=== PATIENT | male | born 1980 | race African-American/Black ===

== ENCOUNTER 2019-07-11 12:26 | Emergency (ER) | payer SELFPAY ==
[~2019-07-11] VITALS: Ht 177.8 cm; Wt 90.7 kg
--- OUTSIDE RECORDS SUMMARY | 2019-07-11 12:30 | XMS REPORT ---
Author Author [facility] Address Unknown Phone Unavailable Care Team Providers Care Manufacturers Service Representative Name Role Phone Unavailable Unavailable Payers Payer Name Policy Type Policy Number Effective Date Expiration Date Problems This patient has no known problems. Allergies, Adverse Reactions, Alerts Allergy Name Allergy Type Status Severity Reaction(s) Onset Date Inactive Date Treating Clinician Comments No Known Allergies DA Active U 2018-09-16 00:00:00 No Known Allergies DA Active U 2018-08-18 00:00:00 No Known Allergies DA Active U 2018-06-11 00:00:00 Medications This patient has no known medications. Results Test Description Test Time Test Comments Text Results Atomic Results Result Comments CREATINE KINASE (CK) 2019-03-09 16:58:00 CREATINE KINASE (CK) (test code=CK) 276 35-232 Result is in INTERNATIONAL UNITS/LITER CREATINE KINASE (CK)2019-03-09 09:04:00* Test Item Value Reference Range Comments CREATINE KINASE (CK) (test code=CK) 303 35-232 Result is in INTERNATIONAL UNITS/LITER COMMENTS: TIMEDCREATINE KINASE (CK)2019-03-09 02:49:00* Test Item Value Reference Range Comments CREATINE KINASE (CK) (test code=CK) 381 35-232 Result is in INTERNATIONAL UNITS/LITER CREATINE KINASE (CK)2019-03-08 21:08:00* Test Item Value Reference Range Comments CREATINE KINASE (CK) (test code=CK) 422 35-232 Result is in INTERNATIONAL UNITS/LITER CREATINE KINASE (CK)2019-03-08 08:54:00* Test Item Value Reference Range Comments CREATINE KINASE (CK) (test code=CK) 584 04-232 Result is in INTERNATIONAL UNITS/LITER CREATINE KINASE (CK)2019-03-07 23:01:00* Test Item Value Reference Range Comments CREATINE KINASE (CK) (test code=CK) 788 35232 Result is in INTERNATIONAL UNITS/LITER DRUGS OF ABUSE SCREEN [id number] 05:33:00* Test Item Value Reference Range Comments URN COCAINE (test code=COCAURN) POSITIVE NEGATIVE URN CANNABINOIDS (test code=CANNABURN) NEGATIVE NEGATIVE URN AMPHETAMINE (test code=AMPHETURN) NEGATIVE NEGATIVE URN BARBITURATE (test code=BARBITURN) NEGATIVE NEGATIVE URN BENZODIAZEPINE (test code=BENZOURN) NEGATIVE NEGATIVE Cut-off value:200 ng/mL URN OPIATES (test code=OPIATURN) NEGATIVE NEGATIVE Cut-off value:2000 ng/mL URN PHENCYCLIDINE (PCP) (test code=PHENCURN) NEGATIVE NEGATIVE Cutoffs:Barbiturates 200 ng/mLBenzodiazepines 200 ng/mLTHC Cannabinoids 50 ng/mLOpiates(Morphine) 2000 ng/mLAmphetamine 1000 ng/mLCocaine 300 ng/mLPCP phencyclidine 25 ng/mL Unconfirmed screening results shouldnot be used for non-medical purposes. DRUGS OF ABUSE SCREEN [id number] 05:25:00* Test Item Value Reference Range Comments URN COCAINE (test code=COCAURN) NEGATIVE URN CANNABINOIDS (test code=CANNABURN) NEGATIVE NEGATIVE URN AMPHETAMINE (test code=AMPHETURN) NEGATIVE NEGATIVE URN BARBITURATE (test code=BARBITURN) NEGATIVE NEGATIVE URN BENZODIAZEPINE (test code=BENZOURN) NEGATIVE NEGATIVE Cut-off value:200 ng/mL URN OPIATES (test code=OPIATURN) NEGATIVE NEGATIVE Cut-off value:2000 ng/mL URN PHENCYCLIDINE (PCP) (test code=PHENCURN) NEGATIVE NEGATIVE Cutoffs:Barbiturates 200 ng/mLBenzodiazepines 200 ng/mLTHC Cannabinoids 50 ng/mLOpiates(Morphine) 2000 ng/mLAmphetamine 1000 ng/mLCocaine 300 ng/mLPCP phencyclidine 25 ng/mL Unconfirmed screening results shouldnot be used for non-medical purposes. URINALYSIS [id number] 05:16:00* Test Item Value Reference Range Comments UA COLOR (test code=COLU) YELLOW YEL/STRAW UA APPEARANCE (test code=APPU) CLEAR CLEAR UA GLUCOSE DIPSTICK (test code=DGLUU) NEGATIVE NEGATIVE UA BILIRUBIN DIPSTICK (test code=BILU) NEGATIVE NEGATIVE UA KETONE DIPSTICK (test code=KETU) NEGATIVE NEGATIVE UA SPECIFIC GRAVITY (test code=SGU) 1.012 1.005-1.030 UA BLOOD DIPSTICK (test code=MARCOS) NEGATIVE NEGATIVE UA PH DIPSTICK (test code=JESENIA) 5.0 5.0-7.0 UA PROTEIN DIPSTICK (test code=PROU) NEGATIVE NEGATIVE UA UROBILINIOGEN DIPSTICK (test code=URO) 2.0 mg/dL 0.2-1.0 UA NITRITE DIPSTICK (test code=DUDLEY) NEGATIVE NEGATIVE UA LEUKOCYTE ESTERASE DIPSTICK (test code=LEUU) NEGATIVE NEGATIVE UA WBC (test code=WBCU) 0-3 WBC/HPF 0-3 UA RBC (test code=RBCU) 0-3 RBC/HPF 0-3 UA BACTERIA (test code=BACU) TRACE /HPF NONE SEEN UA SQUAMOUS CELLS (test code=SQU) 0-5 /HPF NONE SEEN UA MUCUS (test code=MUCU) TRACE /LPF NONE SEEN COMMENTS: Clean CatchCOMPREHENSIVE METABOLIC [id number] 05:13:00* Test Item Value Reference Range Comments SODIUM (test code=NA) 139 mEq/L 134-147 POTASSIUM (test code=K) 4.1 mEq/L 3.4-5.0 CHLORIDE (test code=CL) 106 mEq/L 100-108 CARBON DIOXIDE (test code=CO2) 22 mEq/L 21-33 ANION GAP (test code=GAP) 15 0-20 GLUCOSE (test code=GLU) 86 mg/dL 70-110 BLOOD UREA NITROGEN (test code=BUN) 21 mg/dL 7-18 GLOMERULAR FILTRATION RATE (test code=GFR) 82.0 105-110 Units of measure=ml/min/1.73 m2 CREATININE (test code=CREAT) 1.2 mg/dL 0.6-1.3 TOTAL PROTEIN (test code=PROT) 7.6 g/dL 6.4-8.2 ALBUMIN (test code=ALB) 4.10 g/dL 3.4-5.0 CALCIUM (test code=CA) 8.3 mg/dL 8.0-10.5 BILIRUBIN TOTAL (test code=BILT) 0.40 mg/dL 0.0-1.0 SGOT/AST (test code=AST) 24 IUnit/L 15-37 SGPT/ALT (test code=ALT) 34 IUnit/L 15-65 ALKALINE PHOSPHATASE TOTAL (test code=ALKP) 67 IUnit/L 20-125 CREATINE KINASE (CK)2019-03-07 05:13:00* Test Item Value Reference Range Comments CREATINE KINASE (CK) (test code=CK) 510 35-232 Result is in INTERNATIONAL UNITS/LITER [id number] 05:13:00* Test Item Value Reference Range Comments ACETAMINOPHEN (test code=ACET) < 2 ug/mL 10-30 [id number] 05:13:00* Test Item Value Reference Range Comments SALICYLATE (test code=PANKAJ) < 1.7 mg/dL 2.8-20.0 [id number] 05:13:00* Test Item Value Reference Range Comments ALCOHOL (test code=ALC) 0.082 G/dL <0.003 Ethyl Alcohol Interpretation: 0.100 gm/dL - Legally Intoxicated 0.300-0.400 gm/dL - Severely Intoxicated >0.400 gm/dL - Potentially LethalResults are for Medical purposes only, and not for Legal orEmployment evaluation purposes. CBC W/AUTO [id number] 04:58:00* Test Item Value Reference Range Comments WHITE BLOOD CELL (test code=WBC) 11.34 x10 3/uL 4.5-11.0 RED BLOOD CELL (test code=RBC) 3.89 x10 6/uL 4.00-5.60 HEMOGLOBIN (test code=HGB) 11.9 g/dL 12.5-16.9 HEMATOCRIT (test code=HCT) 37.8 % 37.5-50.7 MEAN CELL VOLUME (test code=MCV) 97.2 fL 81.0-99.0 MEAN CELL HGB (test code=MCH) 30.6 pg 27.0-33.0 MEAN CELL HGB CONCETRATION (test code=MCHC) 31.5 g/dL 33.0-37.0 RED CELL DISTRIBUTION WIDTH CV (test code=RDW) 11.9 % 11.5-14.5 RED CELL DISTRIBUTION WIDTH SD (test code=RDW-SD) 42.7 fL 37.0-54.0 PLATELET COUNT (test code=PLT) 266 x10 3/uL 150-400 MEAN PLATELET VOLUME (test code=MPV) 10.0 fL 7.0-9.0 NEUTROPHIL % (test code=NT%) 83.6 % 56.0-77.0 IMMATURE GRANULOCYTE % (test code=IG%) 0.5 % 0.0-2.0 LYMPHOCYTE % (test code=LY%) 10.8 % 14.0-32.0 MONOCYTE % (test code=MO%) 4.9 % 4.8-9.0 EOSINOPHIL % (test code=EO%) 0.0 % 0.3-3.7 BASOPHIL % (test code=BA%) 0.2 % 0.0-2.0 NUCLEATED RBC % (test code=NRBC%) 0.0 % 0-0 NEUTROPHIL # (test code=NT#) 9.49 x10 3/uL 2.0-7.6 IMMATURE GRANULOCYTE # (test code=IG#) 0.06 x10 3/uL 0.00-0.03 LYMPHOCYTE # (test code=LY#) 1.22 x10 3/uL 1.0-3.8 MONOCYTE # (test code=MO#) 0.55 x10 3/uL 0.1-0.8 EOSINOPHIL # (test code=EO#) 0.00 x10 3/uL 0.0-0.2 BASOPHIL # (test code=BA#) 0.02 x10 3/uL 0.0-0.2 NUCLEATED RBC # (test code=NRBC#) 0.00 x10 3/uL 0.0-0.1 MANUAL DIFF REQUIRED (test code=MDIFF) NO
--- OUTSIDE RECORDS SUMMARY | 2019-07-11 12:30 | XMS REPORT | Clinical Summary ---
Author Author [facility] Address Unknown Phone Unavailable Care Team Providers Care Cleaner Wall Name Role Phone Asked, No Pcp PCP Unavailable Allergies No Known Allergies Medications No known medications Active Problems Not on file Encounters Care Team Description Date Type Specialty Russel Teixeira, Suicidal thoughts (Primary Dx); Alcoholic intoxication with complication 07/14/2018 Emergency Emergency Medicine after 07/10/2018 Social History Date Tobacco Use Types Packs/Day Years Used Never Assessed Sex Assigned at Date Recorded Not on file Industry Job Start Date Occupation Not on file Not on file Not on file Travel End Travel History Travel Start No recent travel history available. Last Filed Vital Signs Reading Time Taken Comments Vital Sign 123/70 07/14/2018 4:21 PM CDT Blood Pressure 69 07/14/2018 4:21 PM CDT Pulse 36.8 C (98.2 F) 07/14/2018 4:21 PM CDT Temperature 18 07/14/2018 4:21 PM CDT Respiratory Rate 97% 07/14/2018 4:21 PM CDT Oxygen Saturation - - Inhaled Oxygen Concentration 94.3 kg (208 lb) 07/14/2018 3:39 AM CDT Weight 180.3 cm (5' 11") 07/14/2018 3:39 AM CDT Height 29.01 07/14/2018 3:39 AM CDT Body Mass Index Plan of Treatment Not on file Procedures Comments Procedure Name Priority Date/Time Associated Diagnosis ALCOHOL LEVEL, BLOOD Timed 07/14/2018 11:20 AM CDT URINE DRUGS OF ABUSE STAT 07/14/2018 SCREEN 4:00 AM CDT URINALYSIS SCREEN AND STAT 07/14/2018 MICROSCOPY, WITH REFLEX 4:00 AM CDT TO CULTURE URINE CULTURE STAT 07/14/2018 4:00 AM CDT ESTIMATED GFR STAT 07/14/2018 3:40 AM CDT SALICYLATE LEVEL STAT 07/14/2018 3:40 AM CDT ACETAMINOPHEN LEVEL STAT 07/14/2018 3:40 AM CDT ALCOHOL LEVEL, BLOOD STAT 07/14/2018 3:40 AM CDT THYROID STIMULATING STAT 07/14/2018 HORMONE 3:40 AM CDT COMPREHENSIVE METABOLIC STAT 07/14/2018 PANEL 3:40 AM CDT HC COMPLETE BLD COUNT STAT 07/14/2018 W/AUTO DIFF 3:40 AM CDT after 07/10/2018 Results * Alcohol level, blood (07/14/2018 11:20 AM CDT) Only the most recent of 2 results within the time period is included. [facility] Alcohol 126.0 mg/dL [facility] Comment: DEPARTMENT OF Normal PATHOLOGY AND None GENOMIC Detected MEDICINE Legal Intoxication in [place]80 mg/dL (0.08%) - Whole Blood Toxic Concentration 200 mg/dL (0.2%) Potentially Fatal3 50 - 500 mg/dL (0.35 - 0.5%) Alcohol percent 0.126 % [facility] DEPARTMENT OF PATHOLOGY AND GENOMIC MEDICINE Specimen Plasma specimen Performing Organization Address City/State/Zipcode Phone Number [facility] [address] [address] [place] [id number] PATHOLOGY AND GENOMIC MEDICINE * Urinalysis screen and microscopy, with reflex to culture (07/14/2018 4:00 AM CDT) Pathologist [facility] Specimen site Clean catch [facility] DEPARTMENT OF PATHOLOGY AND GENOMIC MEDICINE Color, UA Colorless [facility] DEPARTMENT OF PATHOLOGY AND GENOMIC MEDICINE Appearance, UA Clear [facility] DEPARTMENT OF PATHOLOGY AND GENOMIC MEDICINE Specific 1.001 1.001 - 1.035 [facility] gravity, DEPARTMENT OF PATHOLOGY AND GENOMIC MEDICINE pH, UA 6.0 5.0 - 8.5 [facility] DEPARTMENT OF PATHOLOGY AND GENOMIC MEDICINE Protein, UA Negative Negative [facility] DEPARTMENT OF PATHOLOGY AND GENOMIC MEDICINE Glucose, UA Negative Negative [facility] DEPARTMENT OF PATHOLOGY AND GENOMIC MEDICINE Ketones, UA Negative Negative [facility] AND GENOMIC MEDICINE Bilirubin, UA Negative Negative [facility] DE[facility] OF PATHOLOGY AND GENOMIC MEDICINE Blood, UA Negative Negative [facility] DEPARTMENT OF PATHOLOGY AND GENOMIC MEDICINE Nitrite, UA Negative Negative [facility] DEPARTMENT OF PATHOLOGY AND GENOMIC MEDICINE Urobilinogen, Negative <2.0 [facility] DEPARTMENT OF PATHOLOGY AND GENOMIC MEDICINE Leukocyte Negative Negative [facility] esterase, UA DEPARTMENT OF PATHOLOGY AND GENOMIC MEDICINE WBC, UA None seen 0 - 1 /HPF [facility] DEPARTMENT OF PATHOLOGY AND GENOMIC MEDICINE RBC, UA None seen 0 - 5 /HPF [facility] DEPARTMENT OF PATHOLOGY AND GENOMIC MEDICINE Bacteria, UA None seen None seen [facility] DEPARTMENT OF PATHOLOGY AND GENOMIC MEDICINE Yeast, UA None seen [facility] DEPARTMENT OF PATHOLOGY AND GENOMIC MEDICINE Yeast with None seen [facility] pseudohyphae, DEPARTMENT OF UA PATHOLOGY AND GENOMIC MEDICINE Specimen Urine Performing Organization Address City/State/Zipcode Phone Number [facility] DEPARTMENT [address] [place] [address] PATHOLOGY AND GENOMIC MEDICINE * Urine drugs of abuse screen (07/14/2018 4:00 AM CDT) Amphetamine Negative [facility] screen, urine DEPARTMENT OF PATHOLOGY AND GENOMIC MEDICINE Methamphetamine Negative [facility] screen, urine DEPARTMENT OF PATHOLOGY AND GENOMIC MEDICINE Barbiturate Negative [facility] screen, urine DEPARTMENT OF PATHOLOGY AND GENOMIC MEDICINE Benzodiazepine Negative [facility] screen, urine DEPARTMENT OF PATHOLOGY AND GENOMIC MEDICINE Cocaine screen, Negative [facility] urine DEPARTMENT OF PATHOLOGY AND GENOMIC MEDICINE Methadone Negative [facility] screen, urine DEPARTMENT OF PATHOLOGY AND GENOMIC MEDICINE Opiates screen, Negative [facility] urine DEPARTMENT OF PATHOLOGY AND GENOMIC MEDICINE Phencyclidine Negative [facility] screen, urine DEPARTMENT OF PATHOLOGY AND GENOMIC MEDICINE Cannabinoid Negative [facility] screen, urine DEPARTMENT OF PATHOLOGY AND GENOMIC MEDICINE Tricyclic Negative [facility] screen, urine Comment: DEPARTMENT OF Drug screen minimum PATHOLOGY AND concentration of detectability GENOMIC Amphetamines MEDICINE 1000 ng/mL Methamphetamines 1000 ng/mL Barbiturates 300 ng/mL Benzodiazepines 300 ng/mL Cocaine 300 ng/mL Methadone 300 ng/mL Opiates 300 ng/mL Phencyclidine 25 ng/mL Cannabinoids 50 ng/mL Tricyclics 1000 ng/mL Negative test results indicates presumptive evidence of lack of clinically significant drug concentration in this urine specimen. Positive test results are presumptive evidence of clinically significant drug concentration in this urine specimen. Testing performed for medical purposes only. Specimen Urine Performing Organization Address [facility] Phone Number [address] [place] [address] PATHOLOGY AND [facility] * Urine culture (07/14/2018 4:00 AM CDT) [facility] Urine culture SEE COMMENTComment: [facility] Bacteriuria screen negative. DEPARTMENT OF PATHOLOGY AND GENOMIC MEDICINE Specimen Urine Performing Organization Address [facility] Phone Number [address] [place] [address] PATHOLOGY AND [facility] * Estimated GFR (07/14/2018 3:40 AM CDT) [facility] Estimated GFR >=90 mL/min/1.73 m2 [facility] Comment: DEPARTMENT OF [facility] PATHOLOGY AND rpretation GENOMIC MEDICINE >=90 Normal or high G2 60-89Mildly decreased [id number] Mildly to moderately decreased [id number] Moderately to severely decreased G4 15-29Severely decreased G5 <15Kidney failure The eGFR was calculated using the Chronic Kidney Disease Epidemiology Collaboration (CKD-EPI) equation. Interpretation is based on recommendations of the National Kidney Foundation-Kidney Disease Outcomes Quality Initiative (NKF-KDOQI) published in 2014. Specimen Plasma specimen Performing Organization Address [facility] Phone Number [address] [place] [address] PATHOLOGY AND GENOMIC MEDICINE * CBC with platelet and differential (07/14/2018 3:40 AM CDT) Pathologist [facility] WBC 6.17 4.50 - 11.00 k/uL [facility] DEPARTMENT OF PATHOLOGY AND GENOMIC MEDICINE RBC 4.38 (L) 4.40 - 6.00 m/uL [facility] DEPARTMENT OF PATHOLOGY AND GENOMIC MEDICINE HGB 13.2 (L) 14.0 - 18.0 g/dL [facility] DEPARTMENT OF PATHOLOGY AND GENOMIC MEDICINE HCT 39.8 (L) 41.0 - 51.0 % [facility] DEPARTMENT OF PATHOLOGY AND GENOMIC MEDICINE MCV 90.9 82.0 - 100.0 fL [facility] DEPARTMENT OF PATHOLOGY AND GENOMIC MEDICINE MCH 30.1 27.0 - 34.0 pg [facility] DEPARTMENT OF PATHOLOGY AND GENOMIC MEDICINE MCHC 33.2 31.0 - 37.0 g/dL [facility] DEPARTMENT OF PATHOLOGY AND GENOMIC MEDICINE RDW - SD 38.9 37.0 - 55.0 fL [facility] DEPARTMENT OF PATHOLOGY AND GENOMIC MEDICINE MPV 9.5 8.8 - 13.2 fL [facility] DEPARTMENT OF PATHOLOGY AND GENOMIC MEDICINE Platelet count 299 150 - 400 k/uL [facility] DEPARTMENT OF PATHOLOGY AND GENOMIC MEDICINE Nucleated RBC 0.00 /100 WBC [facility] DEPARTMENT OF PATHOLOGY AND GENOMIC MEDICINE Neutrophils 62.1 39.0 - 69.0 % [facility] DEPARTMENT OF PATHOLOGY AND GENOMIC MEDICINE Lymphocytes 32.3 25.0 - 45.0 % [facility] DEPARTMENT OF PATHOLOGY AND GENOMIC MEDICINE Monocytes 4.4 0.0 - 10.0 % [facility] DEPARTMENT OF PATHOLOGY AND GENOMIC MEDICINE Eosinophils 0.5 0.0 - 5.0 % [facility] DEPARTMENT OF PATHOLOGY AND GENOMIC MEDICINE Basophils 0.5 0.0 - 1.0 % [facility] DEPARTMENT OF PATHOLOGY AND GENOMIC MEDICINE Specimen Blood Performing Organization Address [facility] Phone Number [address] [place] [address] PATHOLOGY [facility] GENOMIC [facility] * Thyroid stimulating hormone (07/14/2018 3:40 AM CDT) TSH 1.18 0.27 - 4.20 uIU/mL [facility] DEPARTMENT OF PATHOLOGY AND GENOMIC MEDICINE Specimen Plasma specimen Performing Organization Address [facility] Number [address] [place] [address] PATHOLOGY [facility] * Acetaminophen level (07/14/2018 3:40 AM CDT) Acetaminophen <15.0 10.0 - 30.0 ug/mL [facility] level Comment: DEPARTMENT OF Therapeutic PATHOLOGY AND 10-30 GENOMIC ug/mL MEDICINE Possible Toxicity 150-200 ug/mL Probable Toxicity >200 ug/mL Specimen Plasma specimen Performing Organization Address [facility] Phone Number [address] [place] [address] PATHOLOGY [facility] * Salicylate level (07/14/2018 3:40 AM CDT) Salicylate <0.3 (L) 3.0 - 30.0 mg/dL [facility] DEPARTMENT OF PATHOLOGY AND GENOMIC MEDICINE Specimen Plasma specimen Performing Organization Address [facility]/Zipcode Phone Number [facility] [address] [place] [address] PATHOLOGY AND GENOMIC MEDICINE * Comprehensive metabolic panel (07/14/2018 3:40 AM CDT) Sodium 139 135 - 148 mEq/L [facility] DEPARTMENT OF PATHOLOGY AND GENOMIC MEDICINE Potassium 3.9 3.5 - 5.0 mEq/L [facility] DEPARTMENT OF PATHOLOGY AND GENOMIC MEDICINE Chloride 102 98 - 112 mEq/L [facility] DEPARTMENT OF PATHOLOGY AND GENOMIC MEDICINE CO2 21 (L) 24 - 31 mEq/L [facility] DEPARTMENT OF PATHOLOGY AND GENOMIC MEDICINE Anion gap 16@ANIO (H) 7 - 15 mEq/L [facility] DEPARTMENT OF PATHOLOGY AND GENOMIC MEDICINE BUN 13 6 - 20 mg/dL [facility] DEPARTMENT OF PATHOLOGY AND GENOMIC MEDICINE Creatinine 1.10 0.70 - 1.20 mg/dL [facility] DEPARTMENT OF PATHOLOGY AND GENOMIC MEDICINE Glucose 102 (H) 65 - 99 mg/dL [facility] DEPARTMENT OF PATHOLOGY AND GENOMIC MEDICINE Calcium 9.1 8.3 - 10.2 mg/dL [facility] DEPARTMENT OF PATHOLOGY AND GENOMIC MEDICINE Protein 8.3 6.3 - 8.3 g/dL [facility] Comment: DEPARTMENT OF [place] PATHOLOGY AND 4.6-7.0 g/dL GENOMIC MEDICINE week 4.4-7.6 g/dL 7 months-1year 5.1-7.3 g/dL 1-2 years5.6-7 .5 g/dL >3 years6.0-8 .0 g/dL 18-150 6.3-8.3 g/dL Albumin 5.0 3.5 - 5.0 g/dL [facility] DEPARTMENT OF PATHOLOGY AND GENOMIC MEDICINE A/G ratio 1.5 0.7 - 3.8 [facility] DEPARTMENT OF PATHOLOGY AND GENOMIC MEDICINE Alkaline 71 40 - 129 U/L [facility] phosphatase DEPARTMENT OF PATHOLOGY AND GENOMIC MEDICINE AST 24 10 - 50 U/L [facility] DEPARTMENT OF PATHOLOGY AND GENOMIC MEDICINE ALT 47 5 - 50 U/L [facility] DEPARTMENT OF PATHOLOGY AND GENOMIC MEDICINE Total bilirubin 0.8 0.0 - 1.2 mg/dL [facility] DEPARTMENT OF PATHOLOGY AND GENOMIC MEDICINE Specimen Plasma specimen Performing Organization Address City/State/Zipcode Phone Number [place] [address] [place] [address] PATHOLOGY AND GENOMIC MEDICINE after 07/10/2018 Advance Directives For more information, please contact: [phone] Patient Clinical Trial Associate Explanation Type Date Recorded Advance Directives, 07/14/2018 8:09 AM Living Will and Medical Power of Tax Consultant
--- NOTE | 2019-07-11 12:40 | NUR ---
PT HAD PREVIOUS ACCOUNT MADE, ERROR ON ACCOUNT; PT WAS GIVEN TORADOL 60 MG IM INJ @1216 AND CLINDAMYCIN 600 MG IM INJ @1218- GIVEN TWO INJECTIONS OF APPROX 300 MG EACH, PT TOLERTATED WELL, WILL BE IN LOBBY FOR SHOT WATCH, TIME OF DOCUMENTATION ON EMR WILL BE LISTED TIME THAT NEW ACCOUNT WAS CREATED.
[2019-07-11] MEDS ORDERED: CLINDAMYCIN PHOS 600 MG/ 4 ML VIAL IM ONE (12:45)
[2019-07-11] MEDS ORDERED: KETOROLAC TROMETHAMINE 60 MG/2 ML VIAL IM ONE (12:45)
[2019-07-11 13:14] VITALS: BP 113/65
== END 2019-07-11 13:21 | disposition home or self-care (01) ==
LOC: ER 12:26
DX: M79.604 Pain in right leg (principal); L03.115 Cellulitis of right lower limb; W22.03XA Walked into furniture, initial encounter; R26.2 Difficulty in walking, not elsewhere classified; Y92.008 Other place in unspecified non-institutional (private) residence as the place of occurrence of the external cause
CPT/HCPCS: 99282